=== PATIENT | female | born 1930 | race Caucasian/White ===

== ENCOUNTER 2017-02-16 18:56 | Emergency (ER) | payer MEDICARE ==
[~2017-02-16] VITALS: Ht 157.5 cm; Wt 190.0 kg
[~2017-02-16 18:56] MED LIST: ASPI-973 PO; CALC-714 PO; CARV6.252 PO; CHOL200047 PO; DOCU-41 PO; ERGO2000 PO; FLUN25SP NS; LOSA25TA21 PO; OMEG1CAP25 PO; ROSU5TAB PO; TRAM50TA2 PO
[2017-02-16 18:59] VITALS: BP 209/67; PULSE 60; RESP 16; O2SAT 98
[2017-02-16 21:11] VITALS: BP 184/72
--- NOTE | 2017-02-16 21:54 | ED.REPORT ---
HPI-Headache Date of Service Feb 16, 2017 ED Provider: Deniz Llamas MD Patient is a 86 year old female with a history of migraines and hypertension who presents to the ED complaining of a left sided headache that began yesterday evening. Patient states that the pain began behind her left ear but has now spread across more of her head. She states that the pain is sharp and intermittent. Patient states that the area was itchy yesterday. She reports associated nausea and decreased appetite but denies vomiting. The patient states that she has not had a migraine in over a year. Her headaches typically resolve with Tylenol and sleep, but her headache did not do so tonight. Patient was noted to have a high blood pressure at 209/67 in triage, with the patient taking Metoprolol at 1400 today. Patient states that she developed difficulty seeing out of her right eye several weeks ago, but this has not changed since onset of her headache. The patient states that she has been drinking lots of water and does not feel dehydrated. She denies a history of kidney disease. Nursing Notes Stated Complaint: SEVERE HEAD PAIN/ L SIDE Chief Complaint: Headache Nursing Notes Reviewed: Yes Allergies: Coded Allergies: atenolol (Verified Allergy, Severe, RASH, 02/16/17) budesonide (Verified Allergy, Severe, Dizziness, 02/16/17) codeine (Verified Allergy, Severe, Itching, 02/16/17) diltiazem HCl (Verified Allergy, Severe, Rash, 02/16/17) formoterol fumarate (Verified Allergy, Severe, Dizziness, 02/16/17) hydrochlorothiazide (Verified Allergy, Severe, Unknown, 02/16/17) hydrocodone (Verified Allergy, Severe, Itching, 02/16/17) lisinopril (Verified Allergy, Severe, Rash, 02/16/17) losartan (Verified Allergy, Severe, RASH, 02/16/17) nifedipine (Verified Allergy, Severe, RASH, 02/16/17) omeprazole (Verified Allergy, Severe, stomach pains, 02/16/17) pantoprazole (Verified Allergy, Severe, stomach pains, 02/16/17) propoxyphene napsylate (Verified Allergy, Severe, Itching, 02/16/17) ranitidine (Verified Allergy, Severe, stomach pains, 02/16/17) triamterene (Verified Allergy, Severe, RASH, 02/16/17) verapamil (Verified Allergy, Severe, RASH, 02/16/17) neomycin (Verified Allergy, Unknown, rash, 02/16/17) polymyxin B (Verified Allergy, Unknown, rash, 02/16/17) tramadol (Verified Adverse Reaction, Intermediate, can't think straight, ) Uncoded Allergies: AEROPRO (Allergy, Unknown, rash, 05/30/14) Scheduled Aspirin (Aspirin) 81 Mg Tablet 81 MG PO DAILY Carvedilol (Carvedilol) 6.25 Mg Tablet 6.25 MG PO BID Cholecalciferol (Vitamin D3) (Vitamin D3) 2,000 Unit Capsule 2,000 UNIT PO PM Rosuvastatin Calcium (Crestor) 5 Mg Tablet 5 MG PO DAILY Scheduled PRN Docusate Sodium (Colace) 100 Mg Capsule 100 MG PO BID PRN PRN For Constipation Tramadol (Tramadol) 50 Mg Tablet 50 MG PO Q4H PRN PRN For Pain Miscellaneous Medications Calcium Carb/Magnesium Cmb #10 ([place]-Mag Tablet Chewable) 1 Each Tab.chew 1 EACH PO Ergocalciferol (Vitamin D2) (Vitamin D2) 2,000 Unit Tablet 2,000 UNIT PO Flunisolide (Flunisolide) 25 Ml [place] 25 ML NS Losartan Potassium (Losartan Potassium) 25 Mg Tablet 25 MG PO [place]-3 Fatty Acids/Fish Oil ([place] 3 Fish Oil Softgel) 1 Each Capsule. 2 EACH PO General Time Seen by MD: 21:53 Chief Complaint Headache Hx Obtained From: Patient Arrived By: Walk-in Sudden in Onset?: No Onset Occurred: Yesterday Quality: Painful Severity: Current: Moderate Severity: Maximum: Severe Recent Healthcare: No recent doctor visit, No recent hospitalization Similar Sx Previous: Yes Past Medical History Past Medical History Hypertension Seasonal allergies Osteoarthritis Spinal stenosis, lumbar DVT, on blood thinning medication over 30 years ago Reports: Hyperlipidemia Past Surgical History Hysterectomy Family History Noncontributory Smoking History Never Smoker Social History Alcohol Use: Denies alcohol use Drug Use: Denies drug use Other Social History: Local resident Ambulatory Status Independent Review of Systems Review of Systems Note: + decreased PO intake GI: Reports: Nausea, Denies: Vomiting Skin: Reports Itching Neurologic: Reports: Headache, Vision change, Denies: Change LOC Complete sys rev & neg: except as marked. Physical Exam Initial Vital Signs Vital Signs (First) Date Time Temp Pulse Resp B/P Pulse Ox O2 Delivery O2 Flow Rate FiO2 02/16/17 18:59 35.7 60 16 209/67 98 Room Air Initial VS: Reviewed, Vital signs abnormal Respiratory: Breath sounds normal, Clear to auscultation, No respiratory distress Cardiovascular: Regular rate & rhythm, Heart sounds normal, Intact distal pulses Extremities: Vascular intact, Neuro intact Skin: Warm, Dry, No cyanosis Psychiatric: Mood/affect normal, Behavior normal, Normal thought content General/Constitutional: Awake, Alert Head / Eyes: Normocephalic, PERRL, Temporal arteries NL tenderness at the temporalis muscle left, above the mastoid, with two small papules Neck: Supple, Full range of motion Neurologic: Oriented X3, Speech NL, No motor deficits, No sensory deficits, CN II - XII intact ENT: Airway patent, Tympanic membs NL, Mastoid area NL Interpretation & Diagnostics Lab Results Interpretation Result Diagram: 02/16/17222102/16/172221 Test 02/16/17 22:22 White Blood Count 6.6th/mm3 (3.8-10.1) Red Blood Count 4.49mil/mm3 (3.90-5.20) Hemoglobin 13.8g/dL (12.0-15.6) Hematocrit 42.4% (35.0-46.0) Mean Corpuscular Volume 94.4fL (81-100) Mean Corpuscular Hemoglobin 30.7pg (27.0-35.0) Mean Corpuscular Hemoglobin Concent 32.5% (32.0-37.0) Red Cell Distribution Width 13.3% (12.3-15.4) Platelet Count 231bil/L (150-400) Neutrophils (%) (Auto) 42.4% (40-74) Lymphocytes (%) (Auto) 43.5% (14-46) Monocytes (%) (Auto) 10.9% (4-12) Eosinophils (%) (Auto) 2.4% (0-5) Basophils (%) (Auto) 0.6% (0-3) Erythrocyte Sedimentation Rate 9mm/hr (0-40) Hold Purple Top Tube Received (Received) Hold Blue Top Tube Received (Received) Sodium Level 140mEq/L (134-144) Potassium Level 4.1mEq/L (3.5-5.2) Chloride Level 100mEq/L (97-108) Carbon Dioxide Level 25mmol/L (18-29) Blood Urea Nitrogen 15mg/dL (8-27) Creatinine 0.67mg/dL (0.57-1.00) Estimat Glomerular Filtration Rate 120mL/min (>59) Glucose Level 110mg/dL (60-99) Calcium Level 9.5mg/dL (8.5-10.1) Magnesium Level 2.1mg/dL (1.6-2.6) Total Bilirubin 0.3mg/dL (0.0-1.2) Aspartate Amino Transf (AST/SGOT) 22U/L (0-50) Alanine Aminotransferase (ALT/SGPT) 20U/L (0-32) Alkaline Phosphatase 63U/L (25-165) Total Protein 6.7g/dL (6.4-8.4) Albumin 4.2g/dL (3.4-5.0) Hold Red Top Tube Received (Received) Hold [place] Top Tube Received (Received) CT Head Interpretation CONCLUSION: Moderate involutional changes. No acute intracranial abnormality. Radiologist: Rashad Lake MD 02/16/2017 - 10:45:19 PM PDT Study: Head CT no contrast Interpretation / Wet Read by: Interpret - Radiologist Procedures Cranial Nerve Block Time: 00:48 Block Performed by: ED physician Indication: Left sided head pain Consent / Setup / Site Prep: Consent from patient, Time-out performed, Hand hygiene observed, Stand sterile technique Location: Left lesser occipital nerve Local Anesthesia: Bupivacaine 0.5%, Other (4mL injected locally, 3cm wheel) Post-Procedure / Complications: No complications, Condition improved, Tolerated procedure well, Patient stable, No bleeding Re-Eval/Medical Decision Med Decision/Clinical Course 86-year-old female appearing younger than her stated age presents with headache. The headache is pain in the left temporal area just behind the left ear. She has not had any recent headaches, and this is dissimilar to her previous migraine headaches. Physical exam reveals normal neurologic exam, no temporal artery tenderness, no temporalis muscle spasm, and no specific mastoid tenderness. There are 2 small nontender papules in the area of pain, raising the possibility of zoster as an etiology. The rash is not typical enough at this time to make that diagnosis. CT scan is negative including normal mastoids. The area was anesthetized with bupivacaine 0.5% with good relief of her discomfort. She will follow-up with her regular doctor tomorrow if the pain returns or if there is progression of the rash. Source of Hx: Old records Re-Evaluation/Progress #1: Time of Eval: 23:11 Re-Evaluation/Progress Note: Rechecked the patient. She reports that her pain is still present intermittently. She was informed that her CT was normal. Re-examined the patient. Due to the location of her pain, will order additional blood tests. Re-Evaluation/Progress #2: Time of Eval: 00:32 Re-Evaluation/Progress Note: Rechecked the patient. She reports some intermittent pain, which she describes as "twinges". Will preform a nerve block. Re-Evaluation/Progress #3: Time of Eval: 01:00 )( Patient Status: Condition improved Re-Evaluation/Progress Note: Patient is improved with nerve block. Her symptoms are concerning for shingles, which is something she will need to follow-up on. Patient understands and agrees with the plan to be discharged home. Discharge instructions and follow-up discussed. All questions were addressed. Return to the ED warnings given. Counseled Regarding: Diagnosis, Lab results, Need for follow-up, When/why to return to ED Discharge & Departure Impression: Primary Impression: Neuropathy Disposition: Home Discharge Condition All VS Reviewed: Yes Condition: Improved Patient Instructions: Herpes Zoster (ED) Additional Instructions: Because of your pain is not certain but I am suspicious that this may be herpes zoster (shingles). The painful nerve was blocked with bupivacaine. Follow-up with your doctor tomorrow if the pain recurs or if there is a rash in this area. Call me at [phone] between the hours of 9 PM and 6 AM for the next couple of nights if you have any questions or concerns. Referrals: Catina Chambers (PCP) Scribe Attestation Portions of this note were transcribed by Jennifer Parekh. I, Dr. Llamas personally performed the history, physical exam and medical decision-making; I reviewed and confirmed the accuracy of the information in the transcribed note. Signed by: Ran Dooley, 02/17/2017 [id number] copies to: Catina Chambers Howard L MD Feb 16, 2017 21:54 Jennifer Parekh Feb 16, 2017 22:03
[2017-02-16] MEDS ORDERED: 0.9% Sodium Chloride 1,000 ML IV ONE (22:03)
[2017-02-16] MEDS ORDERED: Ondansetron 2 mg/mL 2 mL Inj IVPUSH ONE (22:05)
[2017-02-16] MEDS ORDERED: Acetaminophen IV 1,000 MG in IV Premix 1 EACH IV ONE (22:05)
[2017-02-16 23:28] LABS: BASOPHILS % (AUTO) 0.6 % (0-3); EOSINOPHILS % (AUTO) 2.4 % (0-5); MONOCYTES % (AUTO) 10.9 % (4-12); Mean Corpuscular Hemoglobin 30.7 pg (27.0-35.0); Mean Corpuscular Volume 94.4 fL (81-100); NEUTROPHILS % (AUTO) 42.4 % (40-74); Platelet Count 231 bil/L (150-400)
[2017-02-16 23:38] LABS: Magnesium 2.1 mg/dL (1.6-2.6)
[2017-02-16 23:48] LABS: ERYTHROCYTE SEDIMENTATION RATE 9 mm/hr (0-40)
[2017-02-17 00:33] VITALS: BP 171/70; PULSE 52; RESP 16; O2SAT 95
[2017-02-17 01:05] VITALS: BP 171/70; PULSE 52; RESP 16; O2SAT 95
--- NOTE | 2017-02-17 09:22 | DRSVH ---
PROCEDURE: CT BRAIN WITHOUT CONTRAST ([id number]) INDICATIONS: headache, HTN TECHNIQUE: Noncontrast 4.5 mm thick angled axial sections acquired from the foramen magnum to the vertex, with c oronal reformats. COMPARISON: None. FINDINGS: Image quality: Excellent. CSF spaces: Basal cisterns are patent. No extra-axial fluid collections. The ventricles are symmet radha in size and shape. Brain: No intracranial bleeds or masses. There is cerebral volume loss for age, with resultant vent ricular and sulcal prominence. There are periventricular and deep white matter chronic small vessel ischemic changes. There is intracranial internal carotid artery and vertebral artery atherosclerosis . Skull and face: Calvarium and visualized facial bones appear intact, without suspicious lesions. Sinuses: Visualized sinuses and mastoids are clear. IMPRESSION: No acute intracranial disease process. Dictated by: Telma Alaniz MD, PhD on 02/17/2017 at 9:16 Approved by: Telma Alaniz MD, PhD on 02/17/2017 at 9:21
== END 2017-02-17 01:06 | disposition home or self-care (01) ==
LOC: SED 18:56
DX: G62.9 Polyneuropathy, unspecified (principal); I10 Essential (primary) hypertension; E78.5 Hyperlipidemia, unspecified; Z86.69 Personal history of other diseases of the nervous system and sense organs; Z86.718 Personal history of other venous thrombosis and embolism; Z79.82 Long term (current) use of aspirin
CPT/HCPCS: 64450; 70450; 80053; 83735; 85025; 85651; 96361; 96374; 99284; J0131; J2405; J7030